=== PATIENT | male | born 1980 | race Hispanic/Latino ===

== ENCOUNTER 2016-09-09 01:06 | Observation (INO) | payer MEDICAID ==
[2016-09-09 01:06] VITALS: BMI 21.7
[2016-09-09 01:21] VITALS: TEMP 98; O2SAT 98
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
[2016-09-09] MEDS ORDERED: Tetanus/Diphtheria Toxoids 0.5 ml Syringe IM ONE (01:37)
[2016-09-09 05:58] VITALS: BP 123/75; PULSE 75; RESP 18
== END 2016-09-09 05:23 | disposition home or self-care (01) ==
LOC: C.ER 01:06 → C.9OBSV 01:50
PROVIDERS: ADMIT Emergency Medicine; ATTEND Emergency Medicine
DX: F10.129 Alcohol abuse with intoxication, unspecified (principal); Y90.9 Presence of alcohol in blood, level not specified
CPT/HCPCS: 99284; G0378

== ENCOUNTER 2016-09-09 08:00 | Emergency (ER) | payer MEDICAID ==
[2016-09-09 08:06] VITALS: BMI 23.7
[2016-09-09 08:07] VITALS: TEMP 98.7; O2SAT 95
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
[2016-09-09] MEDS ORDERED: Naproxen 550 mg Tab PO STA (08:56)
[2016-09-09] MEDS ORDERED: Naproxen 550 mg Tab PO ONE (09:05)
[2016-09-09 09:15] VITALS: BP 120/79; PULSE 89; RESP 16
== END 2016-09-09 09:14 | disposition home or self-care (01) ==
LOC: C.ER 08:00
DX: F10.10 Alcohol abuse, uncomplicated (principal); Y90.9 Presence of alcohol in blood, level not specified

== ENCOUNTER 2016-09-20 03:12 | Emergency (ER) | payer MEDICAID ==
[2016-09-20 03:12] VITALS: BMI 23.7
[2016-09-20 03:21] VITALS: RESP 16
--- NOTE | 2016-09-20 03:39 | C.PDOC ---
History Of Present Illness 36 y/o nondomiciled male presents to the ED intoxicated, requesting place to rest. Patient well known to ED for same, seen in [place] ER multiple times. Denies acute medical or psychiatric complaints. Chief Complaint (Nursing): Substance Abuse History Per: Patient Past Medical History Reviewed: Historical Data, Nursing Documentation, Vital Signs Vital Signs: Last Vital Signs Temp 98.0 F 09/20/16 05:55 Pulse 83 09/20/16 05:55 Resp 16 09/20/16 05:55 BP 121/68 09/20/16 05:55 Pulse Ox 97 09/20/16 06:07 - Medical History PMH: Anxiety, Back Problems, Fractures, Gastritis Denies: HIV, HTN, Chronic Kidney Disease, Seizures, Sexually Transmitted Disease - [facility] Procedures ALCOHOL DETOXIFICATION (09/25/14) APPLICATION OF SPLINT (01/09/14) INJECT/INFUSE NEC (01/26/14) TETANUS TOXOID ADMINIST (02/16/14) Family History: States: No Known Family Hx - Social History Hx Tobacco Use: Yes Hx Alcohol Use: Yes Hx Substance Use: No - Immunization History Hx Tetanus Toxoid Vaccination: No Hx Influenza Vaccination: No Hx Pneumococcal Vaccination: No Review Of Systems Except As Marked, All Systems Reviewed And Found Negative. Constitutional: Negative for: Fever, Chills Eyes: Negative for: Vision Change ENT: Negative for: Throat Pain Cardiovascular: Negative for: Chest Pain, Palpitations Respiratory: Negative for: Cough Gastrointestinal: Negative for: Nausea, Vomiting, Abdominal Pain Neurological: Negative for: Altered Mental Status Physical Exam - Physical Exam Appears: Well, Non-toxic, No Acute Distress Skin: Normal Color, Warm, Dry, No Ecchymosis Head: Atraumatic, Normacephalic Eye(s): bilateral: PERRL Nose: No Flaring, No Discharge Oral Mucosa: Moist Neck: Trachea Midline, No Midline Cervical Tenderness, No Paracervical Tenderness, No Step Off Deformity, Supple Chest: Symmetrical Cardiovascular: Rhythm Regular Respiratory: Normal Breath Sounds Gastrointestinal/Abdominal: Soft, No Tenderness, No Distention, No Guarding Back: No Vertebral Tenderness Extremity: No Pedal Edema, No Deformity Neurological/Psych: Oriented x3, Normal Motor, Normal Sensation, Normal Reflexes ED Course And Treatment O2 Sat by Pulse Oximetry: 97 ED OBSERVATION Discharge: Yes Date of observation admission: 09/20/16 Time of observation admission: 03:25 - Observation admission statement Patient is being placed in observation because:: Alcohol intoxication - Goals of Observation Goals of observation are:: Sobriety - Progress Note Progress Note: 09/20/16 At 4: 10, pt sleeping comfortably, not in any apparent distress. Afebrile, hemodynamicaly stable. neurologicaly intact. At 5:37, not n any apparent distress. Easily arousable to verbal stimuli. FSBS 91 At 06:30, pt is awake alert#3, not in any apparent distress. Ambulatory in ED with stable gait. Neurologicaly intact. stable for discharge now. Disposition Counseled Patient/Family Regarding: Diagnosis, Need For Followup - Disposition Referrals: Alcoholics Anonymous [Outside] [facility] [Outside] Disposition: HOME/ ROUTINE Disposition Time: 06:30 Condition: STABLE Instructions: Alcohol Intoxication (ED) - Clinical Impression Clinical Impression: Alcohol intoxication
[2016-09-20 05:56] VITALS: BP 121/68; PULSE 83; TEMP 98
[2016-09-20 06:07] VITALS: O2SAT 97
== END 2016-09-20 06:45 | disposition home or self-care (01) ==
LOC: C.ER 03:12
DX: F10.129 Alcohol abuse with intoxication, unspecified (principal)

== ENCOUNTER 2017-07-15 20:48 | Emergency (ER) | payer MEDICAID ==
[2017-07-15 20:48] VITALS: BMI 24.3
[2017-07-15 21:31] VITALS: BP 130/80; PULSE 84; RESP 14; TEMP 97.6; O2SAT 96
--- NOTE | 2017-07-15 22:34 | C.PDOC ---
History Of Present Illness 37 year old male brought to the ED for substance abuse. On arrival to the ED, patient is refusing to answer questions. States it is a long story with slurred speech, and he is looking for place to stay. Time Seen by Provider: 07/15/17 21:57 Chief Complaint (Nursing): Substance Abuse History Per: Patient History/Exam Limitations: intoxication Onset/Duration Of Symptoms: Hrs Current Symptoms Are (Timing): Still Present Past Medical History Reviewed: Historical Data, Nursing Documentation, Vital Signs Vital Signs: Last Vital Signs Temp 97.6 F 07/15/17 21:28 Pulse 84 07/15/17 21:28 Resp 14 07/15/17 21:28 BP 130/80 07/15/17 21:28 Pulse Ox 96 07/15/17 23:05 - Medical History PMH: Anxiety, Back Problems, Fractures, Gastritis Denies: HIV, HTN, Chronic Kidney Disease, Seizures, Sexually Transmitted Disease Other Surgeries: Right head/orbit surgery - [facility] Procedures ALCOHOL DETOXIFICATION (09/25/14) APPLICATION OF SPLINT (01/09/14) INJECT/INFUSE NEC (01/26/14) TETANUS TOXOID ADMINIST (02/16/14) Family History: States: Unknown Family Hx - Social History Hx Tobacco Use: Yes Hx Alcohol Use: Yes Hx Substance Use: Yes - Immunization History Hx Tetanus Toxoid Vaccination: No Hx Influenza Vaccination: No Hx Pneumococcal Vaccination: No Review Of Systems Constitutional: Positive for: Malaise Physical Exam - Physical Exam Appears: No Acute Distress Skin: Warm, Dry Head: Atraumatic, Normacephalic Eye(s): bilateral: Normal Inspection Oral Mucosa: Moist Neck: Normal, Normal ROM Chest: Symmetrical Cardiovascular: Rhythm Regular, No Murmur Respiratory: Normal Breath Sounds, No Accessory Muscle Use Gastrointestinal/Abdominal: Normal Exam, Soft Extremity: Bilateral: Atraumatic, Normal Color And Temperature, Normal ROM, Other (no obvious signs of injury) Neurological/Psych: Oriented x3, Normal Speech, Normal Cognition, Normal Cranial Nerves, Normal Motor, Normal Sensation, Other (Slurred speech, obvious intoxication, responsive to verbal stimuli) Gait: Unsteady Extremity: Right: No Drift, Left: No Drift, Upper: No Drift, Lower: No Drift ED Course And Treatment O2 Sat by Pulse Oximetry: 96 (RA) Pulse Ox Interpretation: Normal Progress Note: Patient awake and alert answering questions. States he has no place to go but eventually became combative with another patient and then walked out of the ED. Medical Decision Making Medical Decision Making: Time: 22:10 Plan: Patient is resting comfortably. Pending clinical sobriety. Disposition - Disposition Disposition: ELOPEMENT - ER ONLY Disposition Time: 23:25 Condition: STABLE Instructions: Alcohol Abuse and Alcoholism (DC) Forms: [employer] (Urdu) - Clinical Impression Clinical Impression: Alcohol abuse with intoxication - Scribe Statement The provider has reviewed the documentation as recorded by the Scribe (Jessi Kendall) Provider Attestation: All medical record entries made by the Scribe were at my direction and personally dictated by me. I have reviewed the chart and agree that the record accurately reflects my personal performance of the history, physical exam, medical decision making, and the department course for this patient. I have also personally directed, reviewed, and agree with the discharge instructions and disposition.
== END 2017-07-15 22:09 | disposition left against medical advice (07) ==
LOC: C.ER 20:48
DX: F10.129 Alcohol abuse with intoxication, unspecified (principal)

== ENCOUNTER 2017-07-30 01:11 | Emergency (ER) | payer MEDICAID ==
[2017-07-30 01:11] VITALS: BMI 24.3
[2017-07-30 01:26] VITALS: TEMP 98
--- NOTE | 2017-07-30 02:52 | C.PDOC ---
History Of Present Illness Patient is a 37 y/o male who presents to the ED BIBA for alcohol abuse today. Patient admits to drinking 10 beers today; denies any drug use. No other physical complaints at this time. Pt refuses to answer questions, pt stated " leave me alone, i wanna sleep". Time Seen by Provider: 07/30/17 02:02 Chief Complaint (Nursing): Substance Abuse History Per: Patient History/Exam Limitations: no limitations Onset/Duration Of Symptoms: Hrs Current Symptoms Are (Timing): Still Present Suicide/Self Injury Attempted (Context): None Modifying Factor(s): Alcohol Recent travel outside of the [place]: No Past Medical History Reviewed: Historical Data, Nursing Documentation, Vital Signs Vital Signs: Last Vital Signs Temp 98.0 F 07/30/17 03:26 Pulse 66 07/30/17 03:26 Resp 18 07/30/17 03:26 BP 109/69 07/30/17 03:26 Pulse Ox 95 07/30/17 03:26 - Medical History PMH: Anxiety, Back Problems, Fractures, Gastritis Denies: HIV, HTN, Chronic Kidney Disease, Seizures, Sexually Transmitted Disease Surgical History: No Surg Hx - [facility] Procedures ALCOHOL DETOXIFICATION (09/25/14) APPLICATION OF SPLINT (01/09/14) INJECT/INFUSE NEC (01/26/14) TETANUS TOXOID ADMINIST (02/16/14) Family History: States: No Known Family Hx - Social History Hx Tobacco Use: Yes Hx Alcohol Use: Yes Hx Substance Use: Yes - Immunization History Hx Tetanus Toxoid Vaccination: No Hx Influenza Vaccination: No Hx Pneumococcal Vaccination: No Review Of Systems Gastrointestinal: Negative for: Nausea, Vomiting, Abdominal Pain, Diarrhea Neurological: Positive for: Other (EtOH intoxication) Physical Exam - Physical Exam Appears: Well, Non-toxic, No Acute Distress Skin: Normal Color, Warm, Dry Head: Atraumatic, Normacephalic Oral Mucosa: Moist Chest: Symmetrical Cardiovascular: Rhythm Regular, No Murmur Respiratory: Normal Breath Sounds, No Rales, No Rhonchi, No Wheezing Gastrointestinal/Abdominal: Soft, No Tenderness Neurological/Psych: Oriented x3, Normal Speech, Normal Cognition ED Course And Treatment O2 Sat by Pulse Oximetry: 97 Progress Note: Patient resting comfortably and remains stable. Pt is ambulatory to bathroom with steady gait Disposition - Disposition Referrals: [facility] [Outside] Disposition Time: 04:56 Condition: STABLE Instructions: Alcohol Abuse and Alcoholism (DC) Forms: [employer] (Citizen [place]) - Clinical Impression Clinical Impression: Alcohol abuse - Scribe Statement The provider has reviewed the documentation as recorded by the Scribe Gricelda Lara All medical record entries made by the Scribe were at my direction and personally dictated by me. I have reviewed the chart and agree that the record accurately reflects my personal performance of the history, physical exam, medical decision making, and the department course for this patient. I have also personally directed, reviewed, and agree with the discharge instructions and disposition.
[2017-07-30 03:27] VITALS: RESP 18
[2017-07-30 05:08] VITALS: BP 115/71; PULSE 60; O2SAT 99
== END 2017-07-30 05:31 | disposition home or self-care (01) ==
LOC: C.ER 01:11
DX: F10.10 Alcohol abuse, uncomplicated (principal); Z87.891 Personal history of nicotine dependence

== ENCOUNTER 2017-08-05 01:28 | Emergency (ER) | payer MEDICAID ==
[2017-08-05 01:28] VITALS: BMI 24.3
[2017-08-05 01:46] VITALS: O2SAT 97
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
[2017-08-05 05:40] VITALS: BP 120/70; PULSE 82; RESP 20; TEMP 97.2
== END 2017-08-05 05:40 | disposition home or self-care (01) ==
LOC: SUPCPDRO 01:28 → C.ER 01:28
DX: F10.129 Alcohol abuse with intoxication, unspecified (principal); Y90.9 Presence of alcohol in blood, level not specified

== ENCOUNTER 2017-10-02 21:29 | Emergency (ER) | payer MEDICAID ==
[2017-10-02 21:36] VITALS: BMI 24.3
[2017-10-02 22:46] VITALS: O2SAT 96
--- NOTE | 2017-10-03 00:03 | C.PDOC ---
History Of Present Illness <Kumar Durham E - Last Filed: 10/03/17 00:41> <Destin Meeks - Last Filed: 10/03/17 05:19> 37 year old male is brought to the ED by EMS for public intoxication accompanied by [place] Police. Patient has multiple prior evaluation for similar presentation. Upon arrival patient was physically and verbally confrontational with Police and staff and was placed on 4 point restraints for his safety and the safety of the staff. Patient denies SI/HI, hallucinations, SOB, CP. (Kumar Durham) History Per: Patient, EMS History/Exam Limitations: intoxication Onset/Duration Of Symptoms: Hrs Current Symptoms Are (Timing): Still Present Suicide/Self Injury Attempted (Context): None Modifying Factor(s): Alcohol Associated Symptoms: Anger. denies: Depression, Suicidal Thoughts, Suicidal Plan Involuntary Hold By: Local Law Enforcement Recent travel outside of the [place]: No Additional History Per: Patient, EMS, Law Enforcement <Kumar Durham - Last Filed: 10/03/17 00:41> <Destin Meeks - Last Filed: 10/03/17 05:19> Time Seen by Provider: 10/02/17 21:49 Chief Complaint (Nursing): Substance Abuse Past Medical History Reviewed: Historical Data, Nursing Documentation, Vital Signs - Medical History PMH: Anxiety, Back Problems, Fractures, Gastritis Denies: HIV, HTN, Chronic Kidney Disease, Seizures, Sexually Transmitted Disease Surgical History: No Surg Hx Family History: States: Unknown Family Hx - Social History Hx Tobacco Use: Yes Hx Alcohol Use: Yes Hx Substance Use: Yes - Immunization History Hx Tetanus Toxoid Vaccination: No Hx Influenza Vaccination: No Hx Pneumococcal Vaccination: No <Kumar Durham - Last Filed: 10/03/17 00:41> Vital Signs: Last Vital Signs Temp 98.3 F 10/03/17 04:47 Pulse 78 10/03/17 04:47 Resp 18 10/03/17 04:47 BP 111/77 10/03/17 04:47 Pulse Ox 96 10/03/17 04:47 - [facility] Procedures ALCOHOL DETOXIFICATION (09/25/14) APPLICATION OF SPLINT (01/09/14) INJECT/INFUSE NEC (01/26/14) TETANUS TOXOID ADMINIST (11/06/14) Review Of Systems Constitutional: Negative for: Fever, Chills Eyes: Negative for: Vision Change Cardiovascular: Negative for: Chest Pain Respiratory: Negative for: Shortness of Breath Gastrointestinal: Negative for: Nausea, Vomiting Psych: Negative for: Depression, Suicidal ideation <Kumar Durham - Last Filed: 10/03/17 00:41> Physical Exam - Physical Exam Appears: Non-toxic, Combative, Other (thin white male, AOB) Skin: Normal Color, Warm, Dry Head: Atraumatic, Normacephalic Eye(s): bilateral: Normal Inspection Oral Mucosa: Moist Neck: Normal ROM, Supple Chest: Symmetrical Cardiovascular: Rhythm Regular Respiratory: Normal Breath Sounds, No Rales, No Rhonchi, No Wheezing Gastrointestinal/Abdominal: Soft, No Tenderness, No Guarding, No Rebound Extremity: Normal ROM, No Tenderness, No Swelling Neurological/Psych: Oriented x3, Normal Speech Gait: Steady <Kumar Durham - Last Filed: 10/03/17 00:41> ED Course And Treatment O2 Sat by Pulse Oximetry: 96 (ON RA) Pulse Ox Interpretation: Normal Reevaluation Time: 01:00 Reassessment Condition: Improved <Kumar Durham - Last Filed: 10/03/17 00:41> Medical Decision Making <Kumar Durham - Last Filed: 10/03/17 00:41> <Destin Meeks - Last Filed: 10/03/17 05:19> Medical Decision Making: Impression: public intoxication Plan: * 1:1 OBS Patient was verbally and physically confrontational with staff and Police, patient was placed in 4 pint restraints for his safety and the safety of the staff. typical alcohol abuse and abusive behavior pending sobriety (Kumar Durham) Disposition - Disposition Disposition Time: 01:00 <Kumar Durham - Last Filed: 10/03/17 00:41> Counseled Patient/Family Regarding: Diagnosis - Disposition Disposition Time: 04:48 <Destin Meeks - Last Filed: 10/03/17 05:19> - Disposition Referrals: [facility] [Outside] Condition: STABLE Forms: [facility] (Irish) - Clinical Impression Clinical Impression: Alcohol intoxication - Scribe Statement The provider has reviewed the documentation as recorded by the Scribe <Kumar Durham - Last Filed: 10/03/17 00:41> <Destin Meeks - Last Filed: 10/03/17 05:19> - Scribe Statement Kt Ybarra All medical record entries made by the Sherinibe were at my direction and personally dictated by me. I have reviewed the chart and agree that the record accurately reflects my personal performance of the history, physical exam, medical decision making, and the department course for this patient. I have also personally directed, reviewed, and agree with the discharge instructions and disposition. (Kumar Durham) Physician Patient Turnover Patient Signed Over To: Destin Meeks Handoff Comments: pending sobriety in AM <Kumar Durham - Last Filed: 10/03/17 00:41>
[2017-10-03 04:48] VITALS: BP 111/77; PULSE 78; RESP 18; TEMP 98.3
== END 2017-10-03 05:43 | disposition home or self-care (01) ==
LOC: C.ER 21:29
DX: F10.129 Alcohol abuse with intoxication, unspecified (principal); Y90.9 Presence of alcohol in blood, level not specified

== ENCOUNTER 2018-03-11 20:30 | Emergency (ER) | payer SELFPAY ==
[2018-03-11 20:32] VITALS: BMI 24.3
--- NOTE | 2018-03-11 20:47 | C.PDOC ---
History Of Present Illness 38 year old male is brought in by [place] [employer] for evaluation. Patient is agitated, combative, yelling and cursing at the staff. Patient is acting volatile. Patient denies SI/HI, hallucinations, injury, fall, trauma, CP, SOB. Time Seen by Provider: 03/11/18 20:47 Chief Complaint (Nursing): Substance Abuse History Per: Patient, EMS History/Exam Limitations: other Onset/Duration Of Symptoms: Hrs Current Symptoms Are (Timing): Still Present Suicide/Self Injury Attempted (Context): None Associated Symptoms: Anger, Agitation. denies: Depression, Suicidal Thoughts, Suicidal Plan Recent travel outside of the [place]: No Additional History Per: Law Enforcement Past Medical History Reviewed: Historical Data, Nursing Documentation, Vital Signs - Medical History PMH: Anxiety, Back Problems, Fractures, Gastritis Denies: HIV, HTN, Chronic Kidney Disease, Seizures, Sexually Transmitted Disease Surgical History: No Surg Hx - [facility] Procedures ALCOHOL DETOXIFICATION (09/25/14) APPLICATION OF SPLINT (01/09/14) INJECT/INFUSE NEC (01/26/14) TETANUS TOXOID ADMINIST (02/16/14) Family History: States: Unknown Family Hx - Social History Hx Tobacco Use: Yes Hx Alcohol Use: Yes Hx Substance Use: Yes - Immunization History Hx Tetanus Toxoid Vaccination: No Hx Influenza Vaccination: No Hx Pneumococcal Vaccination: No Review Of Systems Constitutional: Negative for: Fever, Chills Cardiovascular: Negative for: Chest Pain Respiratory: Negative for: Shortness of Breath Gastrointestinal: Negative for: Nausea, Vomiting Neurological: Negative for: Weakness, Numbness Psych: Negative for: Depression, Suicidal ideation Physical Exam - Physical Exam Appears: Non-toxic, Combative, Agitated Skin: Warm, Dry Head: Normacephalic Eye(s): bilateral: Normal Inspection Chest: Symmetrical Cardiovascular: Rhythm Regular Respiratory: No Rales, No Rhonchi, No Wheezing Gastrointestinal/Abdominal: Soft, No Tenderness Extremity: Bilateral: Atraumatic, Normal Color And Temperature, Normal ROM Neurological/Psych: Oriented x3, Normal Speech, Normal Cognition Gait: Steady ED Course And Treatment O2 Sat by Pulse Oximetry: 97 (ON RA) Pulse Ox Interpretation: Normal Progress Note: Plan: - Versed 2 mg IM. - Geodon 20 mg IM. - 1:1 Obs Reevaluation Time: 05:43 Reassessment Condition: Improved Disposition Counseled Patient/Family Regarding: Studies Performed, Diagnosis, Need For Followup - Disposition Referrals: [facility] [Outside] Disposition: HOME/ ROUTINE Disposition Time: 20:47 Condition: FAIR Instructions: Polysubstance Abuse (DC) Forms: [facility] (Colombian), General Discharge Instructions - Clinical Impression Clinical Impression: Substance abuse - Scribe Statement The provider has reviewed the documentation as recorded by the Scribe Kt Ybarra All medical record entries made by the Scribe were at my direction and personally dictated by me. I have reviewed the chart and agree that the record accurately reflects my personal performance of the history, physical exam, medical decision making, and the department course for this patient. I have also personally directed, reviewed, and agree with the discharge instructions and disposition.
[2018-03-11] MEDS ORDERED: Midazolam 2 MG/2 ML VIAL IM STA (20:48)
[2018-03-11] MEDS ORDERED: Midazolam 2 MG/2 ML VIAL ONE (20:53)
[2018-03-12 02:22] VITALS: RESP 18; TEMP 98.2
[2018-03-12 05:44] VITALS: O2SAT 97
[2018-03-12 05:45] VITALS: BP 110/71; PULSE 73
== END 2018-03-12 06:15 | disposition home or self-care (01) ==
LOC: C.ER 20:30
DX: F19.10 Other psychoactive substance abuse, uncomplicated (principal)
CPT/HCPCS: 96372; 99285; J2250; J3486

== ENCOUNTER 2018-03-25 23:18 | Emergency (ER) | payer SELFPAY ==
[2018-03-25 23:19] VITALS: BMI 24.3
[2018-03-25 23:35] VITALS: BP 114/78; PULSE 84; RESP 20; TEMP 97.1; O2SAT 98
--- NOTE | 2018-03-25 23:58 | C.PDOC ---
History Of Present Illness 38 y/o M p/w R shoulder pain x over 2 weeks. States pain is sharp, worse with palpation or movement. States works out but no actual injuries. Denies fever, chills. Contrary to triage, patient states he is not requesting to sleep here. Time Seen by Provider: 03/25/18 23:36 Chief Complaint (Nursing): Substance Abuse Past Medical History Vital Signs: Last Vital Signs Temp 97.1 F L 03/25/18 23:28 Pulse 84 03/25/18 23:28 Resp 20 03/25/18 23:28 BP 114/78 03/25/18 23:28 Pulse Ox 98 03/25/18 23:28 - Medical History PMH: Anxiety, Asthma, Back Problems, Fractures, Gastritis Denies: Diabetes, Hepatitis, HIV, HTN, Chronic Kidney Disease, Seizures, Sexually Transmitted Disease - [facility] Procedures ALCOHOL DETOXIFICATION (09/25/14) APPLICATION OF SPLINT (01/09/14) INJECT/INFUSE NEC (01/26/14) TETANUS TOXOID ADMINIST (02/16/14) Family History: States: Unknown Family Hx - Social History Hx Tobacco Use: Yes Hx Alcohol Use: Yes Hx Substance Use: No - Immunization History Hx Tetanus Toxoid Vaccination: No Hx Influenza Vaccination: No Hx Pneumococcal Vaccination: No Review Of Systems Except As Marked, All Systems Reviewed And Found Negative. Constitutional: Negative for: Fever Cardiovascular: Negative for: Chest Pain Physical Exam - Physical Exam Additional Physical Exam Comments: Constitutional: No acute distress. Head: Normocephalic. Atraumatic. Eyes: PERRL. ENT: Moist mucous membranes. Neck: Supple. Cardiovascular: Regular rate. Radial pulse 2+ bilaterally. Chest: No tenderness. Respiratory: Clear to auscultation bilaterally. GI: Soft. Nontender. Nondistended. Back: No CVA tenderness. Musculoskeletal: R shoulder tenderness. FROM active and passive. No deformity. Skin: No rash. Neurologic: Alert, no focal deficit. ED Course And Treatment O2 Sat by Pulse Oximetry: 98 Medical Decision Making Medical Decision Making: XR no fracture or dislocation. Pain medication administered. Instructed to return to ED for worsening pain, fever, dyspnea, or any other problem. Otherwise, f/u Ortho. Disposition - Disposition Referrals: Rikki Sal III, MD [Staff Provider] - Disposition: HOME/ ROUTINE Disposition Time: 00:27 Condition: STABLE Instructions: Shoulder Pain (DC) Forms: [facility] (Lao) - Clinical Impression Clinical Impression: Shoulder pain
[2018-03-26] MEDS ORDERED: Acetaminophen-Codeine 300/30 mg Tab PO STA (00:24)
[2018-03-26] MEDS ORDERED: Acetaminophen-Codeine 300/30 mg Tab PO ONE (00:38)
--- NOTE | 2018-03-26 10:25 | RAD ---
PROCEDURE: Radiographs of the Right Shoulder HISTORY: shoulder pain x 2 weeks COMPARISON: None available. FINDINGS: BONES: No acute displaced fracture. The distal clavicle and underlying ribs appear intact. JOINTS: No acute dislocation. SOFT TISSUES: Soft tissues appear unremarkable. No evidence of radiopaque foreign body. IMPRESSION: No acute displaced fracture or dislocation evident. If symptoms persist or if there is continued clinical concern, x-ray follow-up in 7-10 days should be considered.
== END 2018-03-26 01:22 | disposition home or self-care (01) ==
LOC: C.ER 23:18
DX: M25.511 Pain in right shoulder (principal)

== ENCOUNTER 2018-07-18 01:38 | Emergency (ER) | payer SELFPAY ==
[2018-07-18 01:38] VITALS: BMI 24.3
[2018-07-18 03:26] VITALS: BP 122/84; PULSE 100; RESP 20; TEMP 98; O2SAT 98
--- NOTE | 2018-07-18 04:00 | C.PDOC ---
History Of Present Illness 38-year-old male [facility] for [facility]. Patient admits to drinking today. Patient offers no other medical complaint at this time. Chief Complaint (Nursing): Substance Abuse History Per: Patient History/Exam Limitations: no limitations Onset/Duration Of Symptoms: Hrs Current Symptoms Are (Timing): Still Present Suicide/Self Injury Attempted (Context): None Modifying Factor(s): Alcohol Associated Symptoms: Other (intoxication). denies: Suicidal Thoughts, Suicidal Plan Past Medical History Reviewed: Historical Data, Nursing Documentation, Vital Signs Vital Signs: Last Vital Signs Temp 98 F 07/18/18 03:24 Pulse 100 H 07/18/18 03:24 Resp 20 07/18/18 03:24 BP 122/84 07/18/18 03:24 Pulse Ox 98 07/18/18 03:24 - Medical History PMH: Anxiety, Asthma, Back Problems, Fractures, Gastritis Denies: Diabetes, Hepatitis, HIV, HTN, Chronic Kidney Disease, Seizures, Sexually Transmitted Disease Surgical History: No Surg Hx - [facility] Procedures ALCOHOL DETOXIFICATION (09/25/14) APPLICATION OF SPLINT (01/09/14) INJECT/INFUSE NEC (01/26/14) TETANUS TOXOID ADMINIST (02/16/14) Family History: States: No Known Family Hx - Social History Hx Tobacco Use: Yes Hx Alcohol Use: Yes Hx Substance Use: No - Immunization History Hx Tetanus Toxoid Vaccination: No Hx Influenza Vaccination: Yes Hx Pneumococcal Vaccination: Yes Review Of Systems Except As Marked, All Systems Reviewed And Found Negative. Constitutional: Negative for: Fever, Chills, Weakness Cardiovascular: Negative for: Chest Pain Respiratory: Negative for: Cough, Shortness of Breath Gastrointestinal: Negative for: Nausea, Vomiting, Abdominal Pain, Diarrhea Neurological: Negative for: Weakness, Numbness Psych: Positive for: Other (intoxication) Physical Exam - Physical Exam Appears: Non-toxic, No Acute Distress Skin: Normal Color, Warm, Dry Head: Atraumatic, Normacephalic Eye(s): bilateral: Normal Inspection, PERRL, EOMI Nose: Normal Oral Mucosa: Moist, Other (alcohol on breath) Neck: Normal, Supple Chest: Symmetrical, No Tenderness Cardiovascular: Rhythm Regular, No Murmur Respiratory: Normal Breath Sounds, No Rales, No Rhonchi, No Wheezing Gastrointestinal/Abdominal: Soft, No Tenderness, No Guarding, No Rebound Extremity: Normal ROM Neurological/Psych: Oriented x3, Normal Speech, Normal Cognition ED Course And Treatment O2 Sat by Pulse Oximetry: 98 (RA) Pulse Ox Interpretation: Normal Medical Decision Making Medical Decision Making: Plan: Glucose POC Disposition - Disposition Referrals: Ailyn Cottrell, [Non-Staff] - Disposition: HOME/ ROUTINE Disposition Time: 02:30 Condition: IMPROVED Additional Instructions: ANNETTA KUHN, thank you for letting us take care of you today. The emergency medical care you received today was directed at your acute symptoms. If you were prescribed any medication, please fill it and take as directed. It may take several days for your symptoms to resolve. Return to the Emergency Department if your symptoms worsen, do not improve, or if you have any other problems. Please contact your doctor or call one of the physicians/clinics you have been referred to that are listed on the Patient Visit Information form that is included in your discharge packet. Bring any paperwork you were given at discharge with you along with any medications you are taking to your follow up visit. Our treatment cannot replace ongoing medical care by a primary care provider outside of the emergency department. Thank you for allowing the [facility] team to be part of your care today. Follow up with your primary care doctor for any concerns. Instructions: Alcohol Use - When Is Drinking a Problem? Forms: [facility] (Sierra Leonean) - Clinical Impression Clinical Impression: Alcohol use - Scribe Statement The provider has reviewed the documentation as recorded by the Scribe (Pierre Knutson) Provider Attestation: All medical record entries made by the Scribe were at my direction and persona lly dictated by me. I have reviewed the chart and agree that the record accurately reflects my personal performance of the history, physical exam, medical decision making, and the department course for this patient. I have also personally directed, reviewed, and agree with the discharge instructions and disposition.
== END 2018-07-18 03:24 | disposition home or self-care (01) ==
LOC: C.ER 01:38
DX: F10.10 Alcohol abuse, uncomplicated (principal)

== ENCOUNTER 2018-07-20 01:32 | Emergency (ER) | payer SELFPAY ==
[2018-07-20 01:32] VITALS: BMI 24.3
[2018-07-20 02:02] VITALS: O2SAT 98
--- NOTE | 2018-07-20 04:50 | C.PDOC ---
History Of Present Illness 38 year old male with acute ETOH intoxication presents complaining of pain to his pain. Denies other complaints. Time Seen by Provider: 07/20/18 02:01 Chief Complaint (Nursing): Substance Abuse History Per: Patient History/Exam Limitations: no limitations Onset/Duration Of Symptoms: Days Current Symptoms Are (Timing): Still Present Suicide/Self Injury Attempted (Context): None Modifying Factor(s): Alcohol Recent travel outside of the [place]: No Past Medical History Reviewed: Historical Data, Nursing Documentation, Vital Signs Vital Signs: Last Vital Signs Temp 98 F 07/20/18 01:53 Pulse 85 07/20/18 01:53 Resp 20 07/20/18 01:53 BP 130/74 07/20/18 01:53 Pulse Ox 98 07/20/18 01:53 - Medical History PMH: Anxiety, Asthma, Back Problems, Fractures, Gastritis Denies: Diabetes, Hepatitis, HIV, HTN, Chronic Kidney Disease, Seizures, Sexually Transmitted Disease - [facility] Procedures ALCOHOL DETOXIFICATION (09/25/14) APPLICATION OF SPLINT (01/09/14) INJECT/INFUSE NEC (01/26/14) TETANUS TOXOID ADMINIST (02/16/14) Family History: States: Unknown Family Hx - Social History Hx Tobacco Use: Yes Hx Alcohol Use: Yes Hx Substance Use: No - Immunization History Hx Tetanus Toxoid Vaccination: No Hx Influenza Vaccination: Yes Hx Pneumococcal Vaccination: Yes Review Of Systems Musculoskeletal: Positive for: Foot Pain Skin: Negative for: Rash Neurological: Negative for: Weakness, Numbness Physical Exam - Physical Exam Appears: Non-toxic, No Acute Distress Skin: Warm Head: Atraumatic, Normacephalic Oral Mucosa: Moist Extremity: Other (Macerated skin to soles of bilateral feet with erythema, tender, consistent with immersion foot) Pulses: Left Dorsalis Pedis: Normal, Right Dorsalis Pedis: Normal Neurological/Psych: Other (Alert, oriented, answering questions appropriately) ED Course And Treatment O2 Sat by Pulse Oximetry: 98 (Room air) Pulse Ox Interpretation: Normal Medical Decision Making Medical Decision Making: Counseled patient on changing socks often and keeping feet dry in order to treat foot condition, patient admits his priority is drinking and not socks. Disposition Counseled Patient/Family Regarding: Diagnosis, Need For Followup - Disposition Referrals: [facility] [Outside] Disposition: HOME/ ROUTINE Disposition Time: 05:30 Condition: STABLE Additional Instructions: Change socks daily and keep feet dry. Forms: [facility] (Setswana), General Discharge Instructions - Clinical Impression Clinical Impression: Immersion (trench) foot - PA / COTTON TIER / Resident Statement MD/DO has reviewed & agrees with the documentation as recorded. - Scribe Statement The provider has reviewed the documentation as recorded by the Scribe Bereket Romo All medical record entries made by the Scribe were at my direction and personally dictated by me. I have reviewed the chart and agree that the record accurately reflects my personal performance of the history, physical exam, medical decision making, and the department course for this patient. I have also personally directed, reviewed, and agree with the discharge instructions and disposition.
[2018-07-20 05:41] VITALS: BP 128/76; PULSE 83; RESP 16; TEMP 98.1
== END 2018-07-20 05:41 | disposition home or self-care (01) ==
LOC: C.ER 01:32
DX: T69.022A Immersion foot, left foot, initial encounter (principal); T69.021A Immersion foot, right foot, initial encounter

== ENCOUNTER 2018-07-21 22:17 | Emergency (ER) | payer SELFPAY ==
[2018-07-21 22:17] VITALS: BMI 24.3
--- NOTE | 2018-07-21 22:47 | C.PDOC ---
History Of Present Illness 38 year old male is brought to the ED by EMS for alcohol intoxication. Patient reports he was kicked out of his half-way for drinking there. Patient denies SI/HI, hallucinations, injury, fall, trauma. Chief Complaint (Nursing): Substance Abuse History Per: Patient, EMS History/Exam Limitations: intoxication Onset/Duration Of Symptoms: Hrs Current Symptoms Are (Timing): Still Present Suicide/Self Injury Attempted (Context): None Modifying Factor(s): Alcohol Associated Symptoms: denies: Depression, Suicidal Thoughts, Suicidal Plan Additional History Per: Patient, EMS Past Medical History Reviewed: Historical Data, Nursing Documentation, Vital Signs Vital Signs: Last Vital Signs Temp 97.3 F L 07/21/18 22:24 Pulse 108 H 07/21/18 22:24 Resp 20 07/21/18 22:24 BP 132/63 07/21/18 22:24 Pulse Ox 97 07/21/18 22:24 - Medical History PMH: Anxiety, Asthma, Back Problems, Fractures, Gastritis Denies: Diabetes, Hepatitis, HIV, HTN, Chronic Kidney Disease, Seizures, Sexually Transmitted Disease Surgical History: No Surg Hx - [facility] Procedures ALCOHOL DETOXIFICATION (09/25/14) APPLICATION OF SPLINT (01/09/14) INJECT/INFUSE NEC (01/26/14) TETANUS TOXOID ADMINIST (02/16/14) Family History: States: Unknown Family Hx - Social History Hx Tobacco Use: Yes Hx Alcohol Use: Yes Hx Substance Use: No - Immunization History Hx Tetanus Toxoid Vaccination: No Hx Influenza Vaccination: Yes Hx Pneumococcal Vaccination: Yes Review Of Systems Constitutional: Negative for: Fever, Chills Cardiovascular: Negative for: Chest Pain Respiratory: Negative for: Shortness of Breath Gastrointestinal: Negative for: Nausea, Vomiting, Abdominal Pain Skin: Negative for: Rash Psych: Negative for: Depression, Suicidal ideation Physical Exam - Physical Exam Appears: Non-toxic, No Acute Distress, Other (intoxicated) Skin: Normal Color, Warm, Dry Head: Atraumatic, Normacephalic Eye(s): bilateral: Normal Inspection Neck: Normal ROM, Supple Chest: Symmetrical Cardiovascular: Rhythm Regular Respiratory: Normal Breath Sounds, No Rales, No Rhonchi, No Wheezing Gastrointestinal/Abdominal: Soft, No Tenderness Extremity: Normal ROM, No Tenderness, No Swelling Neurological/Psych: Oriented x3, Normal Speech, Normal Cognition Gait: Steady ED Course And Treatment O2 Sat by Pulse Oximetry: 97 (On RA) Pulse Ox Interpretation: Normal Disposition - Disposition Referrals: [facility] [Outside] Disposition: HOME/ ROUTINE Disposition Time: 05:33 Condition: STABLE Instructions: Alcohol Abuse and Alcoholism (DC) Forms: [facility] (Yakut) - POA Present On Arrival: None - Clinical Impression Clinical Impression: Alcohol abuse with intoxication - Scribe Statement The provider has reviewed the documentation as recorded by the Scribe Kt Ybarra All medical record entries made by the Scribe were at my direction and personally dictated by me. I have reviewed the chart and agree that the record accurately reflects my personal performance of the history, physical exam, medical decision making, and the department course for this patient. I have also personally directed, reviewed, and agree with the discharge instructions and disposition.
[2018-07-22 02:31] VITALS: RESP 14
[2018-07-22 05:30] VITALS: BP 128/68; PULSE 86; TEMP 98.1
[2018-07-22 05:33] VITALS: O2SAT 97
== END 2018-07-22 05:30 | disposition home or self-care (01) ==
LOC: C.ER 22:17
DX: F10.129 Alcohol abuse with intoxication, unspecified (principal); Y90.9 Presence of alcohol in blood, level not specified

== ENCOUNTER 2018-07-24 00:29 | Emergency (ER) | payer SELFPAY ==
[2018-07-24 00:30] VITALS: BMI 24.3
[2018-07-24 00:36] VITALS: RESP 16; O2SAT 97
--- NOTE | 2018-07-24 02:11 | C.PDOC ---
History Of Present Illness Patient is brought to the ED for alcohol intoxication. Patient admits to drinking alcohol today, requests a place to spend the night. Patient denies SI/HI, hallucinations, injury, fall, trauma. Time Seen by Provider: 07/24/18 02:10 Chief Complaint (Nursing): Substance Abuse History Per: Patient History/Exam Limitations: intoxication Onset/Duration Of Symptoms: Hrs Current Symptoms Are (Timing): Still Present Suicide/Self Injury Attempted (Context): None Modifying Factor(s): Alcohol Associated Symptoms: denies: Depression, Suicidal Thoughts, Suicidal Plan Recent travel outside of the [place]: No Additional History Per: Patient Past Medical History Reviewed: Historical Data, Nursing Documentation, Vital Signs Vital Signs: Last Vital Signs Temp 97.8 F 07/24/18 00:32 Pulse 99 H 07/24/18 00:32 Resp 16 07/24/18 00:32 BP 132/86 07/24/18 00:32 Pulse Ox 97 07/24/18 00:32 - Medical History PMH: Anxiety, Asthma, Back Problems, Fractures, Gastritis Denies: Diabetes, Hepatitis, HIV, HTN, Chronic Kidney Disease, Seizures, Sexually Transmitted Disease Surgical History: No Surg Hx - [facility] Procedures ALCOHOL DETOXIFICATION (09/25/14) APPLICATION OF SPLINT (01/09/14) INJECT/INFUSE NEC (01/26/14) TETANUS TOXOID ADMINIST (02/16/14) Family History: States: Unknown Family Hx - Social History Hx Tobacco Use: Yes Hx Alcohol Use: Yes Hx Substance Use: No - Immunization History Hx Tetanus Toxoid Vaccination: No Hx Influenza Vaccination: Yes Hx Pneumococcal Vaccination: Yes Review Of Systems Constitutional: Negative for: Fever, Chills Cardiovascular: Negative for: Chest Pain Respiratory: Negative for: Shortness of Breath Gastrointestinal: Negative for: Nausea, Vomiting, Abdominal Pain Skin: Negative for: Rash Psych: Negative for: Depression, Suicidal ideation Physical Exam - Physical Exam Appears: Non-toxic, No Acute Distress Skin: Warm, Dry Head: Normacephalic Eye(s): bilateral: Normal Inspection Neck: Supple Chest: Symmetrical Cardiovascular: Rhythm Regular Respiratory: No Rales, No Rhonchi, No Wheezing Gastrointestinal/Abdominal: Soft, No Tenderness, No Guarding, No Rebound Extremity: Bilateral: Atraumatic, Normal Color And Temperature, Normal ROM Neurological/Psych: Oriented x3, Normal Speech Gait: Steady ED Course And Treatment O2 Sat by Pulse Oximetry: 97 (ON RA) Pulse Ox Interpretation: Normal Reevaluation Time: 05:07 Reassessment Condition: Improved Disposition Counseled Patient/Family Regarding: Studies Performed, Diagnosis, Need For Followup - Disposition Referrals: [facility] [Outside] Disposition: HOME/ ROUTINE Disposition Time: 02:10 Condition: FAIR Instructions: Alcohol Abuse and Alcoholism (DC) Forms: [employer] (Azeri) - Clinical Impression Clinical Impression: Alcohol intoxication - Scribe Statement The provider has reviewed the documentation as recorded by the Scribe Kt Ybarra All medical record entries made by the Scribe were at my direction and pers onally dictated by me. I have reviewed the chart and agree that the record accurately reflects my personal performance of the history, physical exam, medical decision making, and the department course for this patient. I have also personally directed, reviewed, and agree with the discharge instructions and disposition.
[2018-07-24 05:29] VITALS: BP 128/84; PULSE 94; TEMP 98
== END 2018-07-24 05:30 | disposition home or self-care (01) ==
LOC: C.ER 00:29
DX: F10.129 Alcohol abuse with intoxication, unspecified (principal); Z72.0 Tobacco use